=== PATIENT | female | born 1965 | race Caucasian/White ===

== ENCOUNTER → 2017-05-03 | Day surgery (SDC) | payer OTHER ==
[~2017-05-03] MED LIST: ASPIRIN81 M1 PO; ASPIRIN81 M2 PO; BISOPROLOL/HCTZ1 TA3 PO; CENTURY ULTIMA1 EAC3 PO; FISH OIL 1,0001 CAP PO; FISH OIL 1,0001 EACH PO; GLUCOSAMINE CH1 EAC1 PO; SYNTHROID125 PO; ZIAC PO
--- NOTE | ~2017-05-03 | OR ---
Unit #: [id number] #: [id number] Patient: NINO ENGLISH [id number] [address] [address] [id number] O MR#: [id number] NAME: NINO ENGLISH. ROOM: Date of Procedure: 05/03/2017 Admission Date: 05/03/2017 Surgeon: Yaakov Wilson M.D. : 1965 Attending Physician: Yaakov Wilson M.D. Primary Care Physician: Ragini Weeks M.D. OPERATIVE REPORT PREOPERATIVE DIAGNOSES 1. Screening colonoscopy. 2. Strong family history of colon cancer in first-degree relative (mother). 3. Multiple family members with polyps. POSTOPERATIVE DIAGNOSES 1. Screening colonoscopy. 2. Strong family history of colon cancer in first-degree relative (mother). 3. Multiple family members with polyps. PROCEDURES PERFORMED 1. Colonoscopy to terminal ileum. 2. Polypectomy with electrocautery snare, proximal ascending colon. ANESTHESIA Monitored anesthesia care. FINDINGS The patient had 3 mm polyp excised with good hemostasis with electrocautery snare, but unable to retrieve. Mild internal hemorrhoids were found. SPECIMENS None. COMPLICATIONS None apparent. CONDITION The patient tolerated the procedure well. INDICATIONS FOR PROCEDURE The patient is a 52-year-old white female, whose mother had colon cancer and multiple other family members have had multiple polyps. She presents at this time for screening colonoscopy. DESCRIPTION OF PROCEDURE After obtaining informed consent, the patient was brought to the endoscopy suite and after adequate monitored anesthesia care, had the colonoscope placed into the anus and had the scope advanced with the lumen always in Unit #: [id number] #: [id number] Patient: NINO ENGLISH view to the level of the cecum. The ileocecal valve was visualized and we were able to pass into the terminal ileum. The terminal ileum was normal as was the ileocecal valve and cecum. A little bit past the opening of the cecum, there was a very small 3 mm polyp found. It was excised completely with electrocautery snare; however, was lost in the effluent and was unable to be retrieved. The remaining portion of the ascending colon, hepatic flexure, transverse colon, splenic flexure, descending colon, sigmoid colon, and rectum were normal. No diverticula were seen. On retroflexing in the rectum to the anorectal junction, the patient was found to have some mild internal hemorrhoids. The scope was removed without difficulty. On digital examination, there was good sphincter tone. No mass is palpable. The patient went from the endoscopy suite to the recovery area in stable condition. RECOMMENDATIONS High-fiber diet, lots of liquids, tucks or wipes p.r.n. Follow up p.r.n. Dictated by... Yaakov Wilson M.D. LASHELL/anthony TD: 05/03/2017 08:06 JOB #: [id number] [facility] OPERATIVE REPORT Page 1 of 1 X Yaakov Wilson MD X PROCEDURE OPERATIVE NOTE
== END | disposition home or self-care (01) ==
LOC: COPS 05:55
DX: Z12.11 Encounter for screening for malignant neoplasm of colon (principal); D12.0 Benign neoplasm of cecum; K64.8 Other hemorrhoids; I10 Essential (primary) hypertension; E03.9 Hypothyroidism, unspecified; M19.90 Unspecified osteoarthritis, unspecified site; Z87.442 Personal history of urinary calculi; Z80.0 Family history of malignant neoplasm of digestive organs; Z88.2 Allergy status to sulfonamides; Z79.82 Long term (current) use of aspirin; Z79.899 Other long term (current) drug therapy; Z98.890 Other specified postprocedural states; Z83.71 Family history of colonic polyps
CPT/HCPCS: J2250